=== PATIENT | male | born 1995 ===

== ENCOUNTER 2025-04-04 09:07 | Outpatient (RCR) | payer OTHER, SELFPAY | END 2025-04-04 23:59 | disposition home or self-care (01) | LOC: ROT 09:07 | PROVIDERS: ATTENDING PHYSICIAN General Practice | DX: Z47.89 Encounter for other orthopedic aftercare (principal); M66.342 Spontaneous rupture of flexor tendons, left hand; Z73.6 Limitation of activities due to disability | CPT/HCPCS: 97166; 97535 ==